=== PATIENT | male | born 1980 | race Two or more races ===

== ENCOUNTER 2023-12-03 06:56 | Emergency (ER) | payer MEDICAID ==
[~2023-12-03] VITALS: Ht 172.7 cm; Wt 66.1 kg
[2023-12-03 07:50] VITALS: BP 116/81; PULSE 81; RESP 16; TEMP 97.6; O2SAT 100
[2023-12-03] MEDS: KETOROLAC TROMETH 30 MG/ML 1ML VIAL IM ONE (07:57)
[2023-12-03] MEDS ORDERED: IBUP-1456 PO (08:59)
== END 2023-12-03 09:17 | disposition home or self-care (01) ==
LOC: ER 06:56
DX: M25.461 Effusion, right knee (principal)
CPT/HCPCS: 73562; 96372; 99283; J1885